=== PATIENT | female | born 1945 | race Caucasian/White ===

== ENCOUNTER 2019-08-01 12:18 | Emergency (ER) | payer MEDICARE, BC ==
[~2019-08-01] VITALS: Ht 162.6 cm; Wt 75.7 kg
[2019-08-01 12:24] VITALS: BP 145/88
== END 2019-08-01 14:00 | disposition home or self-care (01) ==
LOC: ER 12:21
DX: M25.551 Pain in right hip (principal); M25.531 Pain in right wrist; M54.5 Low back pain; Z88.1 Allergy status to other antibiotic agents; Z91.040 Latex allergy status; V49.59XA Passenger injured in collision with other motor vehicles in traffic accident, initial encounter; Y93.89 Activity, other specified; Y92.488 Other paved roadways as the place of occurrence of the external cause; Y99.8 Other external cause status
CPT/HCPCS: 71045-TC; 72100-TC; 72170-TC; 73110